=== PATIENT | female | born 1935 | race Caucasian/White ===

== ENCOUNTER 2023-12-13 11:35 | Emergency (ER) | payer OTHER ==
[~2023-12-13] VITALS: Ht 154.9 cm; Wt 45.0 kg
[2023-12-13 13:50] VITALS: PULSE 106; RESP 15; O2SAT 100
[2023-12-13] MEDS: traMADol HCL 50 MG TAB PO ONE (13:57)
[2023-12-13 15:12] LABS: Basophils # (auto) 0.1 10 ^3/uL (0-0.2); Basophils % (auto) 0.8 % (0.0-2.0); Eosinophils # (auto) 0.2 10 ^3/uL (0-0.8); Hematocrit 38.9 % (36.0-46.0); Hemoglobin 12.8 g/dL (12.2-16.2); Lymphocytes # (auto) 1.7 10 ^3/uL (0.4-5.4); Mean Corpuscular Hemoglobin 29.6 pg (28.0-32.0); Mean Corpuscular Hgb Conc. 32.8 g/dL (32.0-36.0); Mean Corpuscular Volume 90.3 fL (80.0-100.0); Monocytes # (auto) 0.7 10 ^3/uL (0-1.3); Monocytes % (auto) 8.9 % (0.0-12.0); Neutrophils # (auto) 5.4 10 ^3/uL (1.6-8.6); Neutrophils % (auto) 66.3 % (37.0-80.0); Nucleated Red Blood Cells % 0.1 %; Red Cell Distribution Width 12.8 % (11.8-14.3); White Blood Cell 8.1 10^3/uL (4.4-10.8)
[2023-12-13] MEDS: ONDANSETRON HCL 4 MG/2 ML VIAL IV ONE ×2 (15:12→21:15)
[2023-12-13] MEDS: MORPHINE SULFATE INJ 2 MG/ml SYRG IV ONE ×2 (15:13→21:15)
[2023-12-13] MEDS: SODIUM CHLORIDE 0.9% 1,000 ML IV ONE (15:20)
[2023-12-13 15:36] LABS: Alanine Aminotransferase 11 U/L (7-40); Albumin 3.8 g/dL (3.2-4.8); Alkaline Phosphatase 87 U/L (46-116); Anion Gap 5 (5-15); Aspartate Aminotransferase 15 U/L (13-40); Bilirubin, Total 0.5 mg/dL (0.2-1.0); Blood Urea Nitrogen 33 mg/dL (9-23); Calcium 9.8 mg/dL (8.7-10.4); Carbon Dioxide 34 mmol/L (20-30); Chloride 101 mmol/L (98-107); Glucose 89 mg/dL (74-106); Sodium 140 mmol/L (136-145); Total Protein 5.7 g/dL (5.7-8.2)
[2023-12-13 17:51] LABS: COVID19 ANTIGEN SOFIA FIA NEGATIVE (NEGATIVE)
[2023-12-13 18:08] LABS: INR 0.99 (0.9-1.15); Prothrombin Time 10.5 sec (9.3-11.8)
[2023-12-13 21:03] VITALS: TEMP 98.3; O2SAT 96
[2023-12-13 21:15] VITALS: BP 117/68; PULSE 110; RESP 18
== END 2023-12-13 21:32 | disposition short-term general hospital (02) ==
LOC: ER 11:35 → EDBD 11:35 → ER 21:32
DX: S72.011A Unspecified intracapsular fracture of right femur, initial encounter for closed fracture (principal); I21.4 Non-ST elevation (NSTEMI) myocardial infarction; J44.9 Chronic obstructive pulmonary disease, unspecified; E78.5 Hyperlipidemia, unspecified; Z20.822 Contact with and (suspected) exposure to COVID-19; W01.0XXA Fall on same level from slipping, tripping and stumbling without subsequent striking against object, initial encounter; Y93.89 Activity, other specified; Y92.89 Other specified places as the place of occurrence of the external cause; Y99.8 Other external cause status
CPT/HCPCS: 36415; 71045; 73502; 80053; 85025; 85610; 87426; 96361; 96374; 96375; 96376; 99285; J2270; J2405; J7030